=== PATIENT | female | born 1950 | race Caucasian/White ===

== ENCOUNTER → 2017-08-09 | Outpatient (CLI) | payer MEDICARE ==
[~2017-08-09] MED LIST: GADOBUTROL 10 MMOL/10 ML VIAL ONE
== END ==
LOC: CFH 09:39
PROVIDERS: ATTEND Nurse Practitioner Family
DX: D05.90 Unspecified type of carcinoma in situ of unspecified breast (principal); Z90.13 Acquired absence of bilateral breasts and nipples; Z92.21 Personal history of antineoplastic chemotherapy; Z85.3 Personal history of malignant neoplasm of breast
CPT/HCPCS: A9585; C8908